=== PATIENT | female | born 2000 | race African-American/Black ===

== ENCOUNTER 2021-04-07 03:25 | Emergency (ER) | payer MEDICAID ==
[~2021-04-07] VITALS: Ht 2.5 cm; Wt 74.5 kg
[2021-04-07 05:30] VITALS: BP 121/70; PULSE 81; TEMP 97.7
== END 2021-04-07 05:30 | disposition home or self-care (01) ==
LOC: COL.ER 03:25
DX: T59.891A Toxic effect of other specified gases, fumes and vapors, accidental (unintentional), initial encounter (principal)